=== PATIENT | male | born 1950 | race Caucasian/White ===

== ENCOUNTER 2023-02-07 15:59 | Emergency (ER) | payer MEDICARE, BC ==
[2023-02-07] MEDS ORDERED: Sodium Chloride 0.9% 1,000 ML IV ONE ×2 (16:19→17:44)
[2023-02-07] MEDS ORDERED: Sodium Chloride 0.9% 10 ML Syringe FLUSH PRN (16:19)
[2023-02-07 16:48] LABS: BASOPHILS PERCENT AUTO 0.1 % (0.0-1.0); EOSINOPHILS PERCENT AUTO 0.5 % (1.0-3.0); HEMATOCRIT 42.6 % (40.0-54.0); HEMOGLOBIN 14.7 g/dL (14.0-18.0); LYMPHOCYTES PERCENT AUTO 6.5 % (20.5-50.1); MEAN CORPUSCULAR HEMOGLOBIN 32.2 pg (27.0-34.0); MEAN CORPUSCULAR HGB CONC 34.5 g/dL (33.0-35.0); MEAN CORPUSCULAR VOLUME 93.4 fL (80-100); MONOCYTES PERCENT AUTO 8.9 % (2-8); PLATELET COUNT,PLT 162 10^3/uL (150-450); RED BLOOD CELL COUNT 4.56 10^6/uL (4.6-6.2); WHITE BLOOD CELL COUNT,WBC 11.1 10^3/uL (5.0-10.0)
[2023-02-07 17:05] LABS: A/G RATIO 1.1; ALBUMIN 3.9 g/dL (3.4-5.0); BILIRUBIN TOTAL 1.3 mg/dL (0.2-1.0); BUN/CREATININE RATIO 15.4 (No establ ref range); CALCIUM 8.7 mg/dL (8.5-10.1); CREATININE 1.36 mg/dL (0.70-1.30); EST CRCL DRUG DOSING (CG) 53.06 mL/min; PROTEIN TOTAL,TP 7.6 g/dL (6.4-8.2)
[2023-02-07 17:09] LABS: ANION GAP 9.7 mEq/L (7-13); POTASSIUM,K 3.7 mmol/L (3.5-5.1)
[2023-02-07 17:23] LABS: CORONAVIRUS COVID-19 NAA NEGATIVE (NEGATIVE); INFLUENZA A NAA NEGATIVE (NEGATIVE); INFLUENZA B NAA NEGATIVE (NEGATIVE); RESPIRATORY SYNCYTIAL VIR NAA NEGATIVE (NEGATIVE)
[2023-02-07 17:30] LABS: APPEARANCE,URINE CLOUDY (CLEAR); BILIRUBIN,URINE NEGATIVE (NEGATIVE); COLOR,URINE AMBER (YELLOW); GLUCOSE,URINE NEGATIVE (NEGATIVE); KETONES,URINE NEGATIVE (NEGATIVE); LEUKOCYTE ESTERASE,URINE SMALL (NEGATIVE); NITRITE,URINE POSITIVE (NEGATIVE); OCCULT BLOOD,URINE MODERATE (NEGATIVE); PROTEIN,URINE 30 (NEGATIVE); UROBILINOGEN,URINE 0.2 mg/dL (0.2-1.0)
[2023-02-07 17:40] LABS: RBC,URINE 40-50 /HPF (0-5); WBC,URINE SEMI-PACKED /HPF (0-5/HPF)
[2023-02-07 17:41] LABS: BACTERIA,URINE MODERATE /HPF (0-FEW/HPF); EPITHELIAL CELLS,URINE MODERATE /HPF (NOT SEEN); MUCUS,URINE FEW /LPF (NOT SEEN)
[2023-02-07] MEDS ORDERED: cefTRIAXone 2 GM Vial IVPUSH ONE (17:44)
[2023-02-07] MEDS ORDERED: Take Home: Ciprofloxacin HCl 500 MG, 6 Tab Pack PO ONE (18:11)
[2023-02-07] MEDS ORDERED: Take Home: Ondansetron 4 MG Tab.DIS, 5 Tab Pack PO ONE (18:18)
== END 2023-02-07 18:41 | disposition home or self-care (01) ==
LOC: DL.ED 15:59
DX: N12 Tubulo-interstitial nephritis, not specified as acute or chronic (principal); N39.0 Urinary tract infection, site not specified; E86.0 Dehydration; I10 Essential (primary) hypertension; E78.00 Pure hypercholesterolemia, unspecified; K21.9 Gastro-esophageal reflux disease without esophagitis; E11.9 Type 2 diabetes mellitus without complications; E03.9 Hypothyroidism, unspecified; Z79.82 Long term (current) use of aspirin; Z79.899 Other long term (current) drug therapy; Z79.84 Long term (current) use of oral hypoglycemic drugs
CPT/HCPCS: 0241U; 36415; 80053; 81001; 82947; 83605; 84145; 84484; 85025; 87040; 87086; 87088; 87186; 93005; 93010; 96361; 96374; 99283-25; 99284; A9270-GY; J0696; J3490; J7030; Q0162

== ENCOUNTER 2024-12-20 06:22 | Day surgery (SDC) | payer MEDICARE, BC ==
[2024-12-20] MEDS ORDERED: Propofol 200 MG/20 ML SDV IV ONE (06:23)
[2024-12-20] MEDS ORDERED: Lactated Ringers 1,000 ML IV ONE (06:23)
[2024-12-20] MEDS: Lactated Ringers 1,000 ML IV SCH (06:52)
[2024-12-20] MEDS ORDERED: Propofol 200 MG/20 ML SDV ONE (06:58)
== END 2024-12-20 08:45 | disposition home or self-care (01) ==
LOC: DL.ENDO 06:22
PROVIDERS: ATTEND Internal Medicine Gastroenterology
DX: Z12.11 Encounter for screening for malignant neoplasm of colon (principal); D12.0 Benign neoplasm of cecum; D12.3 Benign neoplasm of transverse colon; K64.8 Other hemorrhoids; K57.30 Diverticulosis of large intestine without perforation or abscess without bleeding; I10 Essential (primary) hypertension; K21.9 Gastro-esophageal reflux disease without esophagitis; Z79.899 Other long term (current) drug therapy
CPT/HCPCS: 45385; 82947; 88305; J2704; J7120; S5010; 00811; 99100